=== PATIENT | male | born 1975 | race Caucasian/White ===

== ENCOUNTER 2018-01-30 14:20 | Emergency (ER) | payer SELFPAY ==
[~2018-01-30] VITALS: Ht 182.9 cm; Wt 79.3 kg
[~2018-01-30 14:20] MED LIST: NAPROXEN500 MG PO
[2018-01-30 17:13] VITALS: BP 155/85
== END 2018-01-30 17:18 | disposition home or self-care (01) ==
LOC: EME 14:20
PROC: 0HQQXZZ Repair Finger Nail, External Approach (ICD-10-PCS; principal; 2018-01-30)
DX: S61.303A Unspecified open wound of left middle finger with damage to nail, initial encounter (principal); W23.0XXA Caught, crushed, jammed, or pinched between moving objects, initial encounter; Y99.0 Civilian activity done for income or pay; F41.9 Anxiety disorder, unspecified; Z88.5 Allergy status to narcotic agent
CPT/HCPCS: 73140; 99281; 99283; S0020